=== PATIENT | male | born 1935 | race Caucasian/White ===

== ENCOUNTER 2017-03-19 13:28 | Inpatient (IN) | payer OTHER, BC ==
[~2017-03-19] VITALS: Ht 175.3 cm; Wt 96.5 kg
[~2017-03-19 13:28] MED LIST: ALBUTEROL SULF8.5 GM IH; AMLODIPINE BESY10 MG PO; ASPIRIN E.C.81 M1 PO; CEFTIN500 MG PO; CIPRO500 MG PO; COLD & FLU REL180 ML PO; DAILY VITAMIN1 EAC8 PO; DONEPEZIL HCL10 MG PO; FISH OIL 1,2001 EAC3; FLOMAX0.4 M1 PO; FLOMAX0.4 MG PO; LEVAQUIN500 MG PO; LEVOTHYROXINE25 MCG PO; LUTEIN6 MG; METOPROLOL SUCC50 MG; METOPROLOL SUCC50 MG PO; METOPROLOL TART25 MG PO; MONOPRIL20 MG PO; MONOPRIL40 MG; MONOPRIL40 MG PO; NORVASC5 MG; OCUVITE1 TABLET PO; OMEGA 3-6-91200 MG PO; OMEGA-31000 M1 PO; Omega III EPA + DHA PO; PRADAXA150 MG PO; PRAVACHOL80 MG PO; PRAVASTATIN SOD80 MG PO; PREDNISONE50 MG PO; TYLENOL EXTRA500 MG PO; VITAMIN B-12500 MC5 SL; VITAMIN B12-FO1 EACH; VITAMIN D1000 INTUN PO; Vitamin B-12 PO; ZITHROMAX Z-PA250 MG PO; ZOCOR80 M1 PO; Zithromax PO
[2017-03-19 14:22] LABS: BASOPHIL COUNT 0.1 K/uL (0-0.1); EOSINOPHIL (%) 0.5 % (0-5); HEMATOCRIT 51.8 % (38.0-50.0); IMMATURE GRANULOCYTE (%) 0.3 % (0.0-0.7); INSTRUMENT ABS NEUTROPHIL CT 6.1 K/uL; LYMPHOCYTE COUNT 1.1 K/uL (1.0-2.8); MCH 29.2 PG (29.0-34.0); MCHC 33.4 G/DL (30.0-36.0); MCV 87.5 FL (86-99); MEAN PLAT.VOLUME 9.4 uM^3 (9.0-12.4); MONOCYTE (%) 6.6 % (3-12); MONOCYTE COUNT 0.5 K/uL (0-0.8); NEUTROPHIL (%) 77.7 % (45-76); NEUTROPHIL COUNT 6.1 K/uL (1.8-6.4); PLATELET COUNT 225 K/uL (156-360); RBC DIS.WIDTH-CV 14.3 % (11.8-14.6); RBC DIS.WIDTH-SD 45.5 % (39-53); RED BLOOD COUNT 5.92 M/uL (4.00-5.50); WHITE BLOOD COUNT 7.9 K/uL (4.1-10.2)
[2017-03-19 14:46] LABS: CHLORIDE 105 mEq/L (99-109); POTASSIUM 3.7 mEq/L (3.7-5.4); SODIUM 143 mEq/L (136-147)
[2017-03-19 14:48] LABS: GLUCOSE 126 mg/dL (70-99)
[2017-03-19 14:49] LABS: ANION GAP 12 MEQ/L (2-14)
[2017-03-19 14:50] LABS: TOTAL BILIRUBIN 2.7 mg/dL (0.0-1.0)
[2017-03-19 14:51] LABS: ALKALINE PHOSPHATASE 69 IU/L (3-129)
[2017-03-19 14:52] LABS: GFR ESTIMATE (CALCULATED) > 59 mL/min/
[2017-03-19 14:53] LABS: UREA NITROGEN (BUN) 19 mg/dL (9-23)
[2017-03-19 14:59] LABS: TROP-I INTERPRETATION NEGATIVE; TROPONIN-I 0.04 ng/mL (0.0-0.30)
[2017-03-19 17:15] LABS: ADD MIUA? YES; BILIRUBIN NEGATIVE; BLOOD SMALL; COLOR YELLOW ((YELLOW)); GLUCOSE (STRIP) NEGATIVE; KETONES 5; LEUKOCYTES NEGATIVE; NITRITE NEGATIVE; PROTEIN (STRIP) 100; SPECIFIC GRAVITY 1.018 (1.000-1.030); UROBILINOGEN 0.2 MG/DL (0.2-1.0)
[2017-03-19 17:23] LABS: BACTERIA NONE SEEN /HPF; EPITHELIAL CELLS RARE /HPF; GRANULAR CASTS 0-5 /LPF; HYALINE CASTS 0-5 /LPF; MUCUS 2+ /LPF; RED BLOOD CELLS 0-5 /HPF (0-5); WHITE BLOOD CELLS 0-5 /HPF (0-5)
[2017-03-19] MEDS ORDERED: PRESERVISION A1 EAC2 PO (17:42)
[2017-03-19] MEDS ORDERED: VITAMIN D31000 UNIT PO (18:24)
[2017-03-20 06:10] VITALS: BP 191/106; BP 191/96
[2017-03-20 06:44] LABS: HEMATOCRIT 50.1 % (38.0-50.0); MCH 30.6 PG (29.0-34.0); MCHC 34.5 G/DL (30.0-36.0); MCV 88.7 FL (86-99); MEAN PLAT.VOLUME 9.5 uM^3 (9.0-12.4); PLATELET COUNT 215 K/uL (156-360); RBC DIS.WIDTH-CV 14.5 % (11.8-14.6); RBC DIS.WIDTH-SD 46.3 % (39-53); RED BLOOD COUNT 5.65 M/uL (4.00-5.50); WHITE BLOOD COUNT 8.9 K/uL (4.1-10.2)
[2017-03-20 07:03] LABS: Estimated Average Glucose 108 mg/dL (70-123); HEMOGLOBIN A1c (GLYCOHEMOGLOB) 5.4 % HGB (Below 5.7)
[2017-03-20 07:08] LABS: ALKALINE PHOSPHATASE 62 IU/L (3-129); ANION GAP 8 MEQ/L (2-14); CHLORIDE 106 MEQ/L (99-109); GFR ESTIMATE (CALCULATED) > 59 mL/min/; GLUCOSE 108 mg/dL (70-99); POTASSIUM 3.4 MEQ/L (3.7-5.4); SAMPLE HEMOLYSIS CHECK 0; SAMPLE ICTERIC CHECK 1; SAMPLE LIPEMIA CHECK 0; SODIUM 143 MEQ/L (136-147); TOTAL BILIRUBIN 2.9 MG/DL (0.0-1.0); UREA NITROGEN (BUN) 18 mg/dL (9-23)
[2017-03-20 08:18] VITALS: BP 176/116
[2017-03-20 10:50] VITALS: BP 123/99
[2017-03-20 16:35] VITALS: BP 129/79
[2017-03-20 19:43] VITALS: BP 162/115
[2017-03-20 23:58] VITALS: BP 155/101
[2017-03-21 03:59] VITALS: BP 156/105
[2017-03-21 09:10] VITALS: BP 136/95
[2017-03-21 12:55] VITALS: BP 164/91
[2017-03-21 17:32] VITALS: BP 168/104
[2017-03-21 17:39] VITALS: BP 168/104
[2017-03-22] VITALS: BP 140/97
[2017-03-22 03:25] VITALS: BP 157/84
[2017-03-22 09:08] VITALS: BP 160/91
[2017-03-22 12:10] VITALS: BP 144/88
[2017-03-23 00:01] VITALS: BP 129/95
[2017-03-23 08:09] VITALS: BP 130/99
[2017-03-23 15:37] VITALS: BP 136/98
[2017-03-23 23:34] VITALS: BP 141/87
[2017-03-24 07:50] VITALS: BP 138/77
[2017-03-24 15:27] VITALS: BP 155/88
[2017-03-25 00:26] VITALS: BP 126/76
[2017-03-25 07:27] VITALS: BP 152/95
[2017-03-25 07:34] LABS: HEMATOCRIT 45.9 % (38.0-50.0); MCHC 36.2 G/DL (30.0-36.0); MCV 85.8 FL (86-99); MEAN PLAT.VOLUME 9.8 uM^3 (9.0-12.4); PLATELET COUNT 162 K/uL (156-360); RBC DIS.WIDTH-CV 14.2 % (11.8-14.6); RBC DIS.WIDTH-SD 43.7 % (39-53); RED BLOOD COUNT 5.35 M/uL (4.00-5.50); WHITE BLOOD COUNT 6.2 K/uL (4.1-10.2)
[2017-03-25 08:11] LABS: ALKALINE PHOSPHATASE 64 IU/L (3-129); ANION GAP 6 MEQ/L (2-14); CHLORIDE 98 MEQ/L (99-109); DIRECT BILIRUBIN 0.4 mg/dL (0.0-0.3); GFR ESTIMATE (CALCULATED) > 59 mL/min/; GLUCOSE 103 mg/dL (70-99); POTASSIUM 3.4 MEQ/L (3.7-5.4); SAMPLE HEMOLYSIS CHECK 0; SAMPLE ICTERIC CHECK 0; SAMPLE LIPEMIA CHECK 0; SODIUM 136 MEQ/L (136-147); UREA NITROGEN (BUN) 11 mg/dL (9-23)
[2017-03-25 08:12] LABS: TOTAL BILIRUBIN 1.7 MG/DL (0.0-1.0)
[2017-03-25] MEDS ORDERED: LOPRESSOR25 MG PO (11:55)
[2017-03-25] MEDS ORDERED: PRAVASTATIN SOD40 MG PO (11:55)
[2017-03-25] MEDS ORDERED: NAMENDA5 MG PO (11:55)
[2017-03-25] MEDS ORDERED: HALOPERIDOL0.5 MG PO (11:55)
[2017-03-25 15:16] VITALS: BP 137/87
[2017-03-25 19:26] VITALS: BP 137/73; BP 152/95
[2017-03-26 00:04] VITALS: BP 187/98
[2017-03-26 08:00] VITALS: BP 140/93
[2017-03-26 12:00] VITALS: BP 140/90
[2017-03-26 17:00] VITALS: BP 160/83
[2017-03-26 23:24] VITALS: BP 153/79
[2017-03-27 08:24] VITALS: BP 161/82
== END 2017-03-27 11:33 | DRG 641 ==
LOC: EME → EDBD 13:28 → EDOF 03-20 03:45 → 5SOUTH 03-20 03:45 → ENRESERV 03-20 03:52 → 5SOUTH 03-20 05:53
PROVIDERS: Emergency Medicine; Internal Medicine
DX: E86.0 Dehydration (principal); G30.1 Alzheimer's disease with late onset; E87.6 Hypokalemia; I48.2 Chronic atrial fibrillation; R73.9 Hyperglycemia, unspecified; E78.00 Pure hypercholesterolemia, unspecified; F02.81 Dementia in other diseases classified elsewhere, unspecified severity, with behavioral disturbance; I10 Essential (primary) hypertension; R62.7 Adult failure to thrive; Z91.14 Patient's other noncompliance with medication regimen; H91.90 Unspecified hearing loss, unspecified ear; E78.5 Hyperlipidemia, unspecified; E03.9 Hypothyroidism, unspecified; H35.30 Unspecified macular degeneration; N40.0 Benign prostatic hyperplasia without lower urinary tract symptoms; F01.51 Vascular dementia, unspecified severity, with behavioral disturbance; Z66 Do not resuscitate
CPT/HCPCS: 70450; 71010; 76705; 80053; 81003; 82248; 83036; 84484; 85025; 85027; 92610 GN; 93005; 97530 GO; 99281; 99285; J7030; S0028